=== PATIENT | female | born 1980 | race Caucasian/White ===

== ENCOUNTER 2022-02-03 09:13 | Emergency (ER) | payer BC ==
[~2022-02-03] VITALS: Ht 160 cm; Wt 51.7 kg
[2022-02-03] MEDS ORDERED: METH10TA PO (09:25)
[2022-02-03] MEDS ORDERED: ADDE20CA3 PO (09:25)
[2022-02-03] MEDS ORDERED: OMEP-173 PO (09:25)
[2022-02-03] MEDS ORDERED: KETOROLAC 30 MG/ML 1ML VIAL IV ONE (10:15)
[2022-02-03] MEDS ORDERED: NS 1,000 ML IV ONE (10:15)
[2022-02-03] MEDS ORDERED: ONDANSETRON 4MG 2ML VIAL IV ONE (10:15)
[2022-02-03 10:42] LABS: BASO % 0.5 % (0.0-1.0); HEMATOCRIT 40.3 % (36.0-47.0); HEMOGLOBIN 14.2 g/dl (12.0-15.5); LYMPH # 0.8 10^3/uL (1.5-5.0); LYMPH % 12.7 % (24.0-44.0); MEAN CORPUSCULAR HEMOGLOBIN 30.7 pg (27.0-33.0); MEAN CORPUSCULAR HGB CONC 35.2 g/dl (32.0-36.5); MONO # 0.2 10^3/uL (0.0-0.8); MONO % 2.5 % (2.0-8.0); NEUTROPHILS # 5.1 10^3/uL (1.5-8.5); NEUTROPHILS % 84.1 % (36.0-66.0); PLATELET COUNT, AUTOMATED 259 10^3/uL (150-450); RED BLOOD COUNT 4.63 10^6/uL (4.00-5.40)
[2022-02-03 11:15] LABS: ALBUMIN 4.2 GM/DL (3.2-5.2); ALT/SGPT 23 U/L (12-78); BILIRUBIN,DIRECT 0.2 MG/DL (0.0-0.2); BILIRUBIN,TOTAL 0.6 MG/DL (0.2-1.0); BLOOD UREA NITROGEN 7 MG/DL (7-18); CALCIUM LEVEL 9.3 MG/DL (8.5-10.1); CARBON DIOXIDE LEVEL 27 MEQ/L (21-32); CHLORIDE LEVEL 108 MEQ/L (98-107); CREATININE FOR GFR 0.81 MG/DL (0.55-1.30); FREE THYROXINE INDEX 3.2 % (1.3-4.8); GLOMERULAR FILTRATION RATE > 60.0 (>58); GLUCOSE, FASTING 98 MG/DL (70-100); LIPASE 140 U/L (73-393); POTASSIUM SERUM 4.4 MEQ/L (3.5-5.1); SODIUM LEVEL 141 MEQ/L (136-145); T UPTAKE 33 % (30-39); THYROID STIMULATING HORMONE 0.855 uIU/ML (0.358-3.740); THYROXINE (T4) 9.7 UG/DL (4.5-12.0); TOTAL PROTEIN 7.8 GM/DL (6.4-8.2)
[2022-02-03] MEDS ORDERED: ISOVUE-370 76% 100ML VIAL As Ordered ONE (11:26)
[2022-02-03 12:16] VITALS: BP 132/70
[2022-02-03] MEDS ORDERED: ONDA4TAB6 PO (12:28)
== END 2022-02-03 13:24 | disposition home or self-care (01) ==
LOC: M ED 09:13
DX: R11.2 Nausea with vomiting, unspecified (principal); R19.7 Diarrhea, unspecified; R00.1 Bradycardia, unspecified; E03.9 Hypothyroidism, unspecified; K21.9 Gastro-esophageal reflux disease without esophagitis; Z98.51 Tubal ligation status; Z79.899 Other long term (current) drug therapy
CPT/HCPCS: 74177; 80047; 80048; 80076; 83690; 84436; 84443; 84479; 84484; 85025; 87486; 87581; 87633; 87798; 93005; 96361; 96374; 96375; 99284; J1885; J2405; Q9967